=== PATIENT | male | born 1960 | race Caucasian/White ===

== ENCOUNTER 2018-06-17 16:35 | Observation (INO) | payer OTHER ==
[2018-06-17 16:39] VITALS: BMI 24.7
--- NOTE | 2018-06-17 16:39 | PDOC ---
History of Present Illness - General Chief Complaint: Syncope/Near Syncope Stated Complaint: SYNCOPE Time Seen by Provider: 06/17/18 16:38 - History of Present Illness Initial Comments: 06/17/18 16:52 Mr. Flaherty is a 57 yo male w/ pmh of HTN and HLD who presents for evaluation of sudden onset weakness earlier today. Patient reports he has been feeling his normal self until shortly before presentation when he became generally weak throughout his body and slumped down. Denies hitting his head or any LOC however. Of note, Mr. Flaherty reports he checked his BP this morning and found it to be 230 systolic. Reports a minor generalized headache at this time. He denies any other complaints. The patient denies chest pain, shortness of breath, and dizziness. Denies fever , chills, nausea, vomit, diarrhea and constipation. Denies dysuria, frequency, urgency and hematuria. Past History - Past Medical History Allergies/Adverse Reactions: Allergies Allergy/AdvReac Type Severity Reaction Status Date / Time No Known Allergies Allergy Verified 06/17/18 16:38 Home Medications: Ambulatory Orders Amlodipine Besylate [Norvasc -] 10 mg PO DAILY 06/17/18 Atorvastatin Ca [Lipitor] 80 mg PO HS 06/17/18 Carvedilol [Coreg -] 25 mg PO BID 06/17/18 Clonidine HCl 0.3 mg PO BID 06/17/18 Furosemide [Lasix -] 20 mg PO DAILY 06/17/18 Review of Systems - Review of Systems Comments:: 06/17/18 16:53 GENERAL/CONSTITUTIONAL: +Weakness as described. No fever or chills. HEAD, EYES, EARS, NOSE AND THROAT: No change in vision. No ear pain or discharge. No sore throat. CARDIOVASCULAR: No chest pain or shortness of breath RESPIRATORY: No cough, wheezing, or hemoptysis. GASTROINTESTINAL: No nausea, vomiting, diarrhea or constipation. GENITOURINARY: No dysuria, frequency, or change in urination. MUSCULOSKELETAL: No joint or muscle swelling or pain. No neck or back pain. SKIN: No rash NEUROLOGIC: +Headache as described. No vertigo or change in strength/sensation. ENDOCRINE: No increased thirst. No abnormal weight change HEMATOLOGIC/LYMPHATIC: No anemia, easy bleeding, or history of blood clots. ALLERGIC/IMMUNOLOGIC: No hives or skin allergy. 06/17/18 16:56 *Physical Exam - Physical Exam Comments: 06/17/18 16:53 GENERAL: Awake, alert, and fully oriented, in no acute distress HEAD: No signs of trauma, normocephalic, atraumatic EYES: PERRLA, EOMI, sclera anicteric, conjunctiva clear ENT: Auricles normal inspection, hearing grossly normal, nares patent, oropharynx clear without exudates. Moist mucosa NECK: Normal ROM, supple, no lymphadenopathy, JVD, or masses LUNGS: No distress, speaks full sentences, clear to auscultation bilaterally HEART: Regular rate and rhythm, normal S1 and S2, no murmurs, rubs or gallops, peripheral pulses normal and equal bilaterally. ABDOMEN: Soft, nontender, normoactive bowel sounds. No guarding, no rebound. No masses EXTREMITIES: Normal inspection, Normal range of motion, no edema. No clubbing or cyanosis. NEUROLOGICAL: Cranial nerves II through XII grossly intact. Normal speech, normal gait, no focal sensorimotor deficits SKIN: Warm, Dry, normal turgor, no rashes or lesions noted. Heart Score/ECG Review - History History: Highly suspicious - Electrocardiogram EKG: Non specific repolarization disturbance - Age Age: 45-65 - Risk Factors Risk Factors Heart Score: Yes Hx Hypercholesterolemia, Yes Hx Hypertension Based on the list above the patient has:: 1-2 risk factors - Troponin Troponin: </= normal limit - Score Heart Score - Total: 5 ED Treatment Course - LABORATORY CBC & Chemistry Diagram: 06/17/18 16:55 06/17/18 16:55 Medical Decision Making - Medical Decision Making 06/17/18 17:46 Mr. Flaherty is a 57 yo male w/ pmh as described who presents for evaluation of sudden onset weakness earlier today. Upon repeat interview patient reports this has happened in the past however he has never been evaluated for it. Patient undergoing evaluation for cardiac causes. Left ventricular hypertrophy noted on EKG. Prolonged QT also noted: QT/QTc 472/509. 06/17/18 18:00 Patient CXR negative. Labs significant for elevated creatinine and decreased GFR as below. Head CT negative for acute process. Significant for small vessel periventricular ischemic changes. Admitting patient for tele-observation for further evaluation of HEART score 5 and concerning near-syncopal episode. Laboratory Results - last 24 hr 06/17/18 06/17/18 16:55 16:55 WBC 8.8 RBC 4.76 Hgb 12.4 Hct 37.1 MCV 78.0 L MCH 26.0 MCHC 33.3 RDW 17.7 H Plt Count 222 MPV 8.5 Absolute Neuts (auto) 6.6 Neutrophils % 74.7 Lymphocytes % 12.1 Monocytes % 10.3 H Eosinophils % 2.5 Basophils % 0.4 Nucleated RBC % 0 Sodium 140 Potassium 4.0 Chloride 102 Carbon Dioxide 29 Anion Gap 9 BUN 41 H Creatinine 2.5 H Creat Clearance w eGFR 26.75 Random Glucose 110 H Calcium 7.9 L Total Bilirubin 0.7 AST 19 ALT 31 Alkaline Phosphatase 118 H Creatine Kinase 118 Troponin I 0.03 Total Protein 6.8 Albumin 3.5 *DC/Admit/Observation/Transfer Diagnosis at time of Disposition: Near syncope CKD (chronic kidney disease) Qualifiers: Chronic kidney disease stage: unspecified stage Qualified Code(s): N18.9 - Chronic kidney disease, unspecified - Discharge Dispostion Decision to Admit order: Yes - Referrals - Patient Instructions - Post Discharge Activity
--- NOTE | 2018-06-17 16:50 | PDOC ---
Attending Attestation - HPI HPI: 06/17/18 16:52 The patient is a 57 year old male, with a significant past medical history of HLD, HTN, who presents to the emergency department with sudden onset of weakness resulting in falling backward while pushing a cart at work today. He states he feels he felt weak secondary to blood pressure. He denies LOC, but reportedly hit the back of his head on the ground. He denies any other symptoms. The patient denies chest pain, shortness of breath, headache and dizziness. The patient denies fever, chills, nausea, vomit, diarrhea and constipation. The patient denies dysuria, frequency, urgency and hematuria. Allergies: NKDA Documentation prepared by Jasmina Lewis, acting as director medical for Radha Mcarthur MD <Jasmina Lewis - Last Filed: 06/17/18 16:52> - Resident Resident Name: Cecilio Escobar - ED Attending Attestation I have performed the following: I have examined & evaluated the patient, The case was reviewed & discussed with the resident, I agree w/resident's findings & plan, Exceptions are as noted - Physicial Exam PE: 06/17/18 17:11 GENERAL: The patient is in no acute distress, resting comfortably. HEAD: Normal EYES: PERRLA, EOMI, sclera anicteric, conjunctiva clear. ENT: Ears normal, nares patent, oropharynx clear without exudates. Moist mucous membranes. NECK: Normal range of motion, supple without JVD LUNGS: Breath sounds equal, clear to auscultation bilaterally. No wheezes, and no crackles. HEART:Regular rate and rhythm, normal S1 and S2 without murmur, rub or gallop. ABDOMEN: Soft, nontender, normoactive bowel sounds. EXTREMITIES: Normal range of motion, no edema. NEUROLOGICAL: Cranial nerves II through XII grossly intact. Normal speech. No focal neurological deficits. MUSCULOSKELETAL: Back non-tender to palpation, no CVA tenderness SKIN: Warm, Dry, normal turgor, no rashes or lesions noted. - Medical Decision Making 06/17/18 16:49 57 yo M h/o HTn on Amlodipine, Coreg, Clonidine, Furosemide. Pt missed his blood pressure meds yesterday evening, took meds this morning Went to work with SBP 200s this afternoon while pushing his cart, he became weak and laid down He associated these symptoms with his elevated blood pressure His co worker saw him on the ground and called EMS No chest pain, no shortness of breath, no palpitations He has a mild headache which is present now Pt denies LOC On examination RRR CTA Neurologically intact - No facial asymmetry No visual disturbance No speech disturbance Moves all extremities with no difficulty or weakness EKG - NSR rate of 70 bpm, axis nml, intervals abn - pr:128ms, QRS:92ms, QTc: 509ms, LVH, t wave inversions I, II, aVL, v4-v6, no st elevation or depression 06/17/18 17:12 I have rechecked this gentleman's Blood pressure Right - 122/84 HR: 68 Left - 131/88 HR:69 Pt presents with pre syncope/syncope no prodrome Will do: Labs CXR Tylenol for headache Consider CT head Obs 06/17/18 17:58 Laboratory Tests 06/17/18 06/17/18 16:55 16:55 WBC 8.8 Hgb 12.4 Hct 37.1 Plt Count 222 BUN 41 H Creatinine 2.5 H Troponin I 0.03 06/17/18 22:32 Clinical impression: pre-syncope/syncope, initial presentation <Radha Mcarthur - Last Filed: 06/17/18 22:32>
[2018-06-17] MEDS ORDERED: ACETAMINOPHEN 1000 MG/100 ML VIAL (NON FORMULARY) IVPB ONE (16:51)
[2018-06-17] MEDS ORDERED: ACETAMINOPHEN INJECTION 100 ML IVPB ONE (16:56)
[2018-06-17 17:15] LABS: BASO % 0.4 % (0-2.0); EOS % 2.5 % (0-4.5); HEMATOCRIT 37.1 % (35.4-49); HEMOGLOBIN 12.4 GM/dL (11.7-16.9); LYMPH % 12.1 % (8-40); MCHC 33.3 g/dl (32.0-35.9); MEAN PLT VOLUME 8.5 fl (7.5-11.1); MONO % 10.3 % (3.8-10.2); NEUT % 74.7 % (42.8-82.8); PLATELET COUNT 222 K/MM3 (134-434); RBC 4.76 M/mm3 (4.00-5.60); RDW 17.7 % (11.9-15.9); WHITE BLOOD COUNT 8.8 K/mm3 (4.0-10.0)
[2018-06-17 17:54] LABS: ALBUMIN 3.5 g/dl (3.4-5.0); ALK PHOS 118 U/L (45-117); ANION GAP 9 MMOL/L (8-16); BILIRUBIN,TOTAL 0.7 mg/dL (0.2-1); BLOOD UREA NITROGEN 41 mg/dL (7-18); CALCIUM 7.9 mg/dL (8.5-10.1); CHLORIDE 102 mmol/L (98-107); CO2 29 mmol/L (21-32); CREATININE 2.5 mg/dL (0.55-1.3); GLUCOSE,RANDOM 110 mg/dL (74-106); SGOT/AST 19 U/L (15-37); SGPT/ALT 31 U/L (13-61); SODIUM 140 mmol/L (136-145); TOT PROT 6.8 g/dl (6.4-8.2)
[2018-06-17] MEDS ORDERED: SODIUM CHLORIDE 1,000 ML IV STA (18:34)
--- NOTE | 2018-06-17 19:44 | HP ---
CHIEF COMPLAINT: dizziness PCP: Nayely Cordoba HISTORY OF PRESENT ILLNESS: Patient is a 57 yo M with a PMHx of HTN, HLD, PR (s/ p 2 stents 10 years ago), presented because of dizziness and weakness that occurred while working today. 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 He did not lose consciousness. He said this happened to him multiple times in the last few months. He denies chest pain and palpitations. He says he does not work in the sun and drinks a lot of water. He said he was at his doctors appointment today when she noticed his BP to be in the 200's. 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 He says he may have felt dizzy because of his blood pressure. He says he saw a immigration law specialist last year but does not remember his name. He denies kidney issues but says he was referred to a nuclear medicine medical director last year and he prescribed him a medication. He does not recall the name of the medication. Patient currently denies headaches, sob, dizziness, chest pain, palpitations, nausea, vomiting, changes in his urine, weight changes. ER course was notable for: (1) Cr 2.5, BUN 41, GFR 26 (2) Left ventricular hypertrophy noted on EKG. Prolonged QT also noted: QT/QTc 472/509. Recent Travel: [facility] last year PAST MEDICAL HISTORY: per HPI PAST SURGICAL HISTORY: denies Social History: Smoking: denies Alcohol:denies Drugs: denies Family History: Allergies No Known Allergies Allergy (Verified 06/17/18 16:38) HOME MEDICATIONS: Home Medications Medication Instructions Recorded Amlodipine Besylate [Norvasc -] 10 mg PO DAILY 06/17/18 Atorvastatin Ca [Lipitor] 80 mg PO HS 06/17/18 Carvedilol [Coreg -] 25 mg PO BID 06/17/18 Clonidine HCl 0.3 mg PO BID 06/17/18 Furosemide [Lasix -] 20 mg PO DAILY 06/17/18 REVIEW OF SYSTEMS CONSTITUTIONAL: Absent: fever, chills, diaphoresis, generalized weakness, malaise, loss of appetite, weight change HEENT: Absent: rhinorrhea, nasal congestion, throat pain, throat swelling, difficulty swallowing, mouth swelling, ear pain, eye pain, visual changes CARDIOVASCULAR: Absent: chest pain, syncope, palpitations, irregular heart rate, lightheadedness , peripheral edema RESPIRATORY: Absent: cough, shortness of breath, dyspnea with exertion, orthopnea, wheezing, stridor, hemoptysis GASTROINTESTINAL: Absent: abdominal pain, abdominal distension, nausea, vomiting, diarrhea, constipation, melena, hematochezia GENITOURINARY: Absent: dysuria, frequency, urgency, hesitancy, hematuria, flank pain, genital pain MUSCULOSKELETAL: Absent: myalgia, arthralgia, joint swelling, back pain, neck pain SKIN: Absent: rash, itching, pallor HEMATOLOGIC/IMMUNOLOGIC: Absent: easy bleeding, easy bruising, lymphadenopathy, frequent infections ENDOCRINE: Absent: unexplained weight gain, unexplained weight loss, heat intolerance, cold intolerance NEUROLOGIC: Absent: headache, focal weakness or paresthesias, dizziness, unsteady gait, seizure, mental status changes, bladder or bowel incontinence PSYCHIATRIC: Absent: anxiety, depression, suicidal or homicidal ideation, hallucinations. PHYSICAL EXAMINATION Vital Signs - 24 hr 06/17/18 06/17/18 06/17/18 16:38 16:52 19:00 Temperature 97.2 F L Pulse Rate 68 Pulse Rate [ 69 Sitting] Pulse Rate [ 68 Standing] Pulse Rate [ 68 Supine] Respiratory 18 Rate Blood Pressure 142/88 Blood Pressure 127/65 [Sitting] Blood Pressure 122/79 [Standing] Blood Pressure 128/84 [Supine] O2 Sat by Pulse 100 Oximetry (%) GENERAL: Awake, alert, and fully oriented, in no acute distress. HEAD: Normal with no signs of trauma. EYES: Pupils equal, round and reactive to light, extraocular movements intact, sclera anicteric, conjunctiva clear. EARS, NOSE, THROAT: oropharynx clear without exudates. Moist mucous membranes. NECK:supple without lymphadenopathy, JVD, or masses. LUNGS: Breath sounds equal, clear to auscultation bilaterally. No wheezes, and no crackles. No accessory muscle use. HEART: Regular rate and rhythm, normal S1 and S2 without murmur, rub or gallop. ABDOMEN: Soft, nontender, not distended, normoactive bowel sounds, no guarding, no rebound, no masses. MUSCULOSKELETAL: Normal range of motion at all joints. No bony deformities or tenderness. No CVA tenderness. LOWER EXTREMITIES: 2+ pulses, warm, well-perfused. No calf tenderness. No peripheral edema. NEUROLOGICAL: Cranial nerves II-XII intact. Normal speech. Normal gait. PSYCHIATRIC: Cooperative. Good eye contact. Appropriate mood and affect. Laboratory Results - last 24 hr 06/17/18 06/17/18 16:55 16:55 WBC 8.8 RBC 4.76 Hgb 12.4 Hct 37.1 MCV 78.0 L MCH 26.0 MCHC 33.3 RDW 17.7 H Plt Count 222 MPV 8.5 Absolute Neuts (auto) 6.6 Neutrophils % 74.7 Lymphocytes % 12.1 Monocytes % 10.3 H Eosinophils % 2.5 Basophils % 0.4 Nucleated RBC % 0 Sodium 140 Potassium 4.0 Chloride 102 Carbon Dioxide 29 Anion Gap 9 BUN 41 H Creatinine 2.5 H Creat Clearance w eGFR 26.75 Random Glucose 110 H Calcium 7.9 L Total Bilirubin 0.7 AST 19 ALT 31 Alkaline Phosphatase 118 H Creatine Kinase 118 Troponin I 0.03 Total Protein 6.8 Albumin 3.5 ASSESSMENT/PLAN: 57 yo M with a PMHx of HTN, HLD, PR (s/p 2 stents 10 years ago), presented because of dizziness and weakness #Presyncope -likely secondary to dehydration -hx of PR, CAD -echo -carotid doppler -lipid panel -consult Cardio -repeat EKG in AM #SACHIN on CKD? -Renal U/S -urine studies -hold lasix -investigate renal hx -renal consulted -IV fluids #HTN/CAD -cont home meds #FEN -IV fluids NS @75 -monitor -Renal diet #DVT -lovenox 40 Dispo: obs/tele Visit type - Emergency Visit Emergency Visit: Yes ED Registration Date: 06/17/18 Care time: The patient presented to the Emergency Department on the above date and was hospitalized for further evaluation of their emergent condition. - New Patient This patient is new to me today: Yes Date on this admission: 06/17/18 - Critical Care Critical Care patient: No
[2018-06-17] MEDS ORDERED: diphenhydrAMINE HCL 25 MG CAPSULE (FP) PO ONE ×2 (19:45→19:55)
[2018-06-17] MEDS: SODIUM CHLORIDE 1,000 ML IV SCH (20:10)
[2018-06-17] MEDS ORDERED: CARVEDILOL 12.5 MG TABLET (FP) ONE (21:49)
[2018-06-17] MEDS ORDERED: cloNIDine HCL 0.1 MG TABLET ONE (21:49)
[2018-06-17] MEDS ORDERED: ATORVASTATIN CA 40 MG TABLET (FP) ONE (21:50)
[2018-06-17] MEDS: cloNIDine HCL 0.1 MG TABLET PO SCH (21:55)
[2018-06-17] MEDS: ATORVASTATIN CA 80 MG TABLET (FP) PO SCH (21:55)
[2018-06-17] MEDS: CARVEDILOL 25 MG TABLET (FP) PO SCH (21:55)
--- NOTE | 2018-06-17 22:43 | PN ---
Teaching Attending Note Name of Resident: Tequila Mims ATTENDING PHYSICIAN STATEMENT I saw and evaluated the patient. I reviewed the resident's note and discussed the case with the resident. I agree with the resident's findings and plan as documented. SUBJECTIVE: OBJECTIVE: aaox3 s1 and s2 rrr lungs CTA good air entry no edema soft non-tender abdomen. ASSESSMENT AND PLAN: this is a 57 yo M with a PMHx of HTN, HLD, GA (s/p 2 stents 10 years ago), presented because of dizziness and weakness while he was pushing the cart, patient nearly fainted - according to him this was the 2nd episode that he almost fainted - so he decided to come to the ER for further evaluation. #Presyncope - 2nd episode - admit the patient to tele floor - obtain an echo -carotid Doppler -lipid panel -consult Cardiology -repeat EKG in AM #SACHIN on CKD? -Renal U/S -urine studies -hold furosemide -investigate renal hx -renal consulted -IV fluids #HTN/CAD -cont home meds Microcytic anemia consider GI evaluation for an outpatient endoscopy
[2018-06-18 06:21] LABS: BASO % 0.7 % (0-2.0); EOS % 4.1 % (0-4.5); HEMATOCRIT 32.7 % (35.4-49); HEMOGLOBIN 10.9 GM/dL (11.7-16.9); LYMPH % 24.2 % (8-40); MCH 25.9 pg (25.7-33.7); MCHC 33.5 g/dl (32.0-35.9); MEAN CELL VOLUME 77.4 fl (80-96); MEAN PLT VOLUME 8.6 fl (7.5-11.1); MONO % 13.1 % (3.8-10.2); NEUT % 57.9 % (42.8-82.8); PLATELET COUNT 205 K/MM3 (134-434); RBC 4.23 M/mm3 (4.00-5.60); RDW 18.2 % (11.9-15.9); WHITE BLOOD COUNT 6.1 K/mm3 (4.0-10.0)
[2018-06-18 06:42] LABS: INR 1.13 (0.83-1.09); PROTHROMBIN TIME (PATIENT) 13.3 SEC (9.7-13.0)
[2018-06-18 06:51] LABS: ALBUMIN 2.9 g/dl (3.4-5.0); ALK PHOS 93 U/L (45-117); ANION GAP 8 MMOL/L (8-16); BILIRUBIN,TOTAL 0.8 mg/dL (0.2-1); BLOOD UREA NITROGEN 39 mg/dL (7-18); CALCIUM 7.8 mg/dL (8.5-10.1); CHLORIDE 106 mmol/L (98-107); CO2 28 mmol/L (21-32); CREATININE 2.2 mg/dL (0.55-1.3); GLUCOSE,RANDOM 72 mg/dL (74-106); HDL CHOLESTEROL 39 mg/dL (40-60); SGOT/AST 16 U/L (15-37); SGPT/ALT 24 U/L (13-61); SODIUM 142 mmol/L (136-145); TOT PROT 5.7 g/dl (6.4-8.2); TRIGLYCERIDES 131 mg/dL (0-150)
[2018-06-18] MEDS: cloNIDine HCL 0.1 MG TABLET PO SCH ×2 (09:15→22:05)
[2018-06-18] MEDS: amLODIPine BESYLATE 10 MG TABLET (FP) PO SCH (09:16)
[2018-06-18] MEDS: CARVEDILOL 25 MG TABLET (FP) PO SCH ×2 (09:16→22:05)
[2018-06-18] MEDS ORDERED: ENOXAPARIN NA (PORCINE) 40 MG/0.4 ML DISP.SYRIN SQ SCH (10:00)
--- NOTE | 2018-06-18 10:33 | PN ---
Progress Note (short form) - Note Progress Note: SUBJECTIVE: Feels well. No further episodes of pre-/syncope. No chest pain/ palpitations. Rash on bilateral arms OBJECTIVE: Afebrile/Hemodynamically Stable. Last Vital Signs Temp Pulse Resp BP Pulse Ox 97.8 F 64 16 143/82 96 06/18/18 06:00 06/18/18 06:00 06/18/18 06:00 06/18/18 06:00 06/18/18 00:45 HEENT - Atraumatic, Normocephalic. Heart -S1, S2, RRR Lungs - clear to auscultation, no crackles/wheeze Abdomen - Soft, non-tender. Bowel Sounds normal. Extremities - no edema. No calf tenderness. Neuro - AAO x 3. Tone/Power normal all 4 extremities Skin - bite allen with some tracking UEs. Laboratory Results - last 24 hr 06/17/18 06/17/18 06/18/18 16:55 16:55 00:15 WBC 8.8 RBC 4.76 Hgb 12.4 Hct 37.1 MCV 78.0 L MCH 26.0 MCHC 33.3 RDW 17.7 H Plt Count 222 MPV 8.5 Absolute Neuts (auto) 6.6 Neutrophils % 74.7 Lymphocytes % 12.1 Monocytes % 10.3 H Eosinophils % 2.5 Basophils % 0.4 Nucleated RBC % 0 PT with INR INR Sodium 140 Potassium 4.0 Chloride 102 Carbon Dioxide 29 Anion Gap 9 BUN 41 H Creatinine 2.5 H Creat Clearance w eGFR 26.75 Random Glucose 110 H Hemoglobin A1c % Calcium 7.9 L Total Bilirubin 0.7 AST 19 ALT 31 Alkaline Phosphatase 118 H Creatine Kinase 118 Troponin I 0.03 0.05 Total Protein 6.8 Albumin 3.5 Triglycerides Cholesterol 191 Total LDL Cholesterol HDL Cholesterol Blood Type Antibody Screen 06/18/18 06/18/18 06/18/18 05:25 05:25 05:25 WBC 6.1 RBC 4.23 Hgb 10.9 L Hct 32.7 L MCV 77.4 L MCH 25.9 MCHC 33.5 RDW 18.2 H Plt Count 205 MPV 8.6 Absolute Neuts (auto) 3.5 Neutrophils % 57.9 D Lymphocytes % 24.2 D Monocytes % 13.1 H Eosinophils % 4.1 Basophils % 0.7 Nucleated RBC % 0 PT with INR 13.30 H INR 1.13 H Sodium 142 Potassium 4.0 Chloride 106 Carbon Dioxide 28 Anion Gap 8 BUN 39 H Creatinine 2.2 H Creat Clearance w eGFR 31.01 Random Glucose 72 L Hemoglobin A1c % Calcium 7.8 L Total Bilirubin 0.8 AST 16 ALT 24 Alkaline Phosphatase 93 Creatine Kinase Troponin I Total Protein 5.7 L Albumin 2.9 L Triglycerides 131 Cholesterol Total LDL Cholesterol 131 H HDL Cholesterol 39 L Blood Type Antibody Screen 06/18/18 06/18/18 06/18/18 05:25 05:25 05:25 WBC RBC Hgb Hct MCV MCH MCHC RDW Plt Count MPV Absolute Neuts (auto) Neutrophils % Lymphocytes % Monocytes % Eosinophils % Basophils % Nucleated RBC % PT with INR INR Sodium Potassium Chloride Carbon Dioxide Anion Gap BUN Creatinine Creat Clearance w eGFR Random Glucose Hemoglobin A1c % 5.7 Calcium Total Bilirubin AST ALT Alkaline Phosphatase Creatine Kinase Troponin I 0.06 H Total Protein Albumin Triglycerides Cholesterol Total LDL Cholesterol HDL Cholesterol Blood Type O POSITIVE Antibody Screen Negative Current Medications Generic Name Dose Route Start Last Admin Trade Name Isaura PRN Reason Stop Dose Admin Amlodipine Besylate 10 mg 06/18/18 10:00 06/18/18 09:16 Norvasc - PO 10 mg DAILY MICK Administration Atorvastatin Calcium 80 mg 06/17/18 22:00 06/17/18 21:55 Lipitor - PO 80 mg HS MICK Administration Carvedilol 25 mg 06/17/18 22:00 06/18/18 09:16 Coreg - PO 25 mg BID MICK Administration Clonidine 0.3 mg 06/17/18 22:00 06/18/18 09:15 Catapres - PO 0.3 mg BID MICK Administration Enoxaparin Sodium 40 mg 06/18/18 10:00 06/18/18 09:16 Lovenox - SQ 40 mg DAILY MICK Administration Sodium Chloride 1,000 mls @ 75 mls/hr 06/17/18 19:00 06/17/18 20:10 Normal Saline - IV 75 mls/hr ASDIR MICK Administration Home Medications Medication Instructions Recorded Amlodipine Besylate [Norvasc -] 10 mg PO DAILY 06/17/18 Atorvastatin Ca [Lipitor] 80 mg PO HS 06/17/18 Carvedilol [Coreg -] 25 mg PO BID 06/17/18 Clonidine HCl 0.3 mg PO BID 06/17/18 Furosemide [Lasix -] 20 mg PO DAILY 06/17/18 ASSESSMENT/PLAN 57 year old Male with HTN, HLD, CAD s/p ID (s/p Stent x 2), possible CKD, admitted with lightheaded episode with weakness necessitating him to lay on the floor - denies LOC/HI. No preceding chest pain/palpitations. 1. Presyncopal Episode Etiology unclear Carotid Duplex - 79% stenosis R ICA, no Hx CVA Echo pending CT Brain neg for acute intracranial findings. No overnight tele events. Cardiology consulted. Will also consult vascular Surgery re: Carotid Stenosis 2. Elevated Troponin/ Background Hx CAD s/p ID s/p Stent x 2 (>10 years ago) Likely secondary to demand - TropI max 0.06, repeat scheduled Denies Chest Pain ECG - SR, LVH, QTc 505. Does not appear to be on ASA. Continue BB, Statin. Cardiology consulted. 3. Possible SACHIN on likely CKD Creat 2.5 on presentation, now down to 2.2 Baseline Creat unknown Patient apparently on Lasix at home for unclear reasons. Will attempt to contact patient's PCP office for further information. Rwnal US - medical renal disease, no hydronephrosis. Continue IV fluids for now. Lasix held. Nephrology consulted. 4. HTN - Continue Norvasc, Carvedilol, Clonidine 5. HLD - Continue Atorvastatin 6. Rash, possible bed bugs vs scabies. Isolation. Permethrin. DVT Px - Change Lovenox to Heparin Visit type - Emergency Visit Emergency Visit: Yes ED Registration Date: 06/17/18 Care time: The patient presented to the Emergency Department on the above date and was hospitalized for further evaluation of their emergent condition. - New Patient This patient is new to me today: Yes Date on this admission: 06/18/18 - Critical Care Critical Care patient: No - Discharge Referral Referred to [facility] Med P.C.: No
[2018-06-18] MEDS ORDERED: PERMETHRIN 5% TOPICAL CREAM 60 GM TUBE TP ONE (11:00)
[2018-06-18] MEDS: SODIUM CHLORIDE 1,000 ML IV SCH (12:00)
[2018-06-18] MEDS: HEPARIN NA (PORCINE) 5,000 UNITS/ML 1ML VIAL SQ SCH ×2 (13:46→22:05)
--- NOTE | 2018-06-18 15:34 | CON.CARD ---
Consult Consult Specialty:: cardiology Reason for Consultation:: near-syncope - History of Present Illness Chief Complaint: Pt A&Ox3; no dizziness, palpitations, chest pain History of Present Illness: Mr. Flaherty is a 57 yo male w/ pmh of HTN and HLD who presents for evaluation of sudden onset weakness earlier today. Patient reports he has been feeling his normal self until shortly before presentation when he became generally weak throughout his body and slumped down. Denies hitting his head or any LOC however. Of note, Mr. Flaherty reports he checked his BP this morning and found it to be 230 systolic. Reports a minor generalized headache at this time. He denies any other complaints. 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 - History Source History Provided By: Patient, Medical Record Limitations to Obtaining History: Poor Historian - Past Medical History Cardio/Vascular: Yes: CAD. No: [place] Pulmonary: No: Asthma Psych: No: Anxiety, Depression, Panic - Past Surgical History Past Surgical History: Yes: Stent (2 coronary stents in ?2011 (placed same day ; in [facility])) - Alcohol/Substance Use Hx Alcohol Use: No - Smoking History Smoking history: Never smoked Have you smoked in the past 12 months: No - Social History Place of : Other ([facility]) Home Medications - Allergies Allergies/Adverse Reactions: Allergies Allergy/AdvReac Type Severity Reaction Status Date / Time No Known Allergies Allergy Verified 06/17/18 16:38 - Home Medications Home Medications: Ambulatory Orders Amlodipine Besylate [Norvasc -] 10 mg PO DAILY 06/17/18 Atorvastatin Ca [Lipitor] 80 mg PO HS 06/17/18 Carvedilol [Coreg -] 25 mg PO BID 06/17/18 Clonidine HCl 0.3 mg PO BID 06/17/18 Furosemide [Lasix -] 20 mg PO DAILY 06/17/18 Ranitidine [Zantac -] 150 mg PO BID 06/20/18 Family Disease History - Family Disease History Family Disease History: Heart Disease: Mother ( near age 80 of "heart") Review of Systems - Review of Systems Constitutional: reports: Weakness Eyes: reports: No Symptoms HENT: reports: No Symptoms Neck: reports: No Symptoms Cardiovascular: reports: Chest Pain Respiratory: reports: No Symptoms Gastrointestinal: reports: No Symptoms Genitourinary: reports: No Symptoms Breasts: reports: No Symptoms Reported Musculoskeletal: reports: No Symptoms Integumentary: reports: No Symptoms Neurological: reports: No Symptoms Endocrine: reports: No Symptoms Hematology/Lymphatic: reports: No Symptoms Psychiatric: reports: Anxiety - Risk Factors Known Risk Factors: Yes: Age, Gender, Hypercholesterolemia, Hypertension, Physical Inactivity, Other (CAD-->coronary stents in 2011) Vital Signs: Vital Signs Temperature 97.9 F 06/18/18 14:48 Pulse Rate 68 06/18/18 14:48 Respiratory Rate 16 06/18/18 14:48 Blood Pressure 138/76 06/18/18 14:48 O2 Sat by Pulse Oximetry (%) 96 06/18/18 00:45 Constitutional: Yes: Anxious Eyes: Yes: WNL HENT: Yes: WNL Neck: Yes: WNL Respiratory: Yes: WNL Gastrointestinal: Yes: WNL Renal/: No: Anuria Cardiovascular: Yes: WNL JVD: No Carotid Bruit: No PMI: Non-Displaced Heart Sounds: Yes: S1, S2 Murmur: Yes: Systolic Murmur, Grade 1 Musculoskeletal: Yes: Muscle Weakness Extremities: Yes: WNL Edema: No Peripheral Pulses WNL: Yes Integumentary: Yes: Rash Neurological: Yes: WNL Psychiatric: Yes: Other - Other Data Labs, Other Data: CBC, BMP 06/18/18 05:25 06/18/18 05:25 INR, PTT INR 1.13 (0.83-1.09) H 06/18/18 05:25 Troponin, BNP 06/17/18 06/18/18 06/18/18 16:55 00:15 05:25 Troponin I 0.03 0.05 0.06 H 06/18/18 11:30 Troponin I 0.05 Troponin, BNP 06/17/18 06/18/18 06/18/18 16:55 00:15 05:25 Troponin I 0.03 0.05 0.06 H 06/18/18 11:30 Troponin I 0.05 Abnormal Lab Results 06/20/18 06/20/18 06/20/18 05:30 05:30 12:20 Hgb 11.0 L Hct 33.1 L MCV 77.7 L 78.0 L RDW 18.0 H 18.3 H BUN 47 H Creatinine 2.4 H Calcium 7.5 L Alkaline Phosphatase 118 H Total Protein 6.2 L Albumin 3.1 L Echo: Image Reviewed Imaging - Results Chest X-ray: Image Reviewed EKG: Image Reviewed Problem List - Problems (1) HTN (hypertension) Code(s): I10 - ESSENTIAL (PRIMARY) HYPERTENSION (2) Near syncope Assessment/Plan: orthotstatic vital signs . Hydration; f/u Is and Os, dialy weight, BUn/Dr, eelectrolytes. Carotid artery stenosis: f/u with vascualr surgeon. F/u CAD w/u. ECHO for LVEF, wall motion, r/o thrombus, wall thickness., valve status. Code(s): R55 - SYNCOPE AND COLLAPSE (3) Hyperlipidemia Assessment/Plan: statin started. Code(s): E78.5 - HYPERLIPIDEMIA, UNSPECIFIED (4) CAD (coronary artery disease) Assessment/Plan: Pt with hx 2 coronary stents placed ?2011 in [facility] [place]. Denies hx [place]. Reports haveing stress MIBI at [facility] ?2017. Start statin (elevated LDL and triglycerides). BP control. Now with mild TNI elevation. If stress MIBI was not recently done, will repeat. Code(s): I25.10 - ATHSCL HEART DISEASE OF [place] CORONARY ARTERY W/O ANG PCTRS (5) Renal dysfunction Assessment/Plan: F/u with director skills. Code(s): N28.9 - DISORDER OF KIDNEY AND URETER, UNSPECIFIED (6) Carotid artery stenosis Assessment/Plan: Aggressive control of BP, lipids. May require CTA or MRA. F/u with vascular surgeon. Code(s): I65.29 - OCCLUSION AND STENOSIS OF UNSPECIFIED CAROTID ARTERY (7) NSVT (nonsustained ventricular tachycardia) Assessment/Plan: Ventricular triplets on telemtry. F/u electrolytes. ECHO for LVEF, wall motion, valve status. F/u workup for progressive CAD and carotid artery disease. Code(s): I47.2 - VENTRICULAR TACHYCARDIA (8) LVH (left ventricular hypertrophy) Assessment/Plan: EKG : NSR; marked LVH with repolarization abnormalities.likely 2ndary to HTN. F?u TNI. F/u ECHO for LVEF, wall thickness and motion, valve status. +Carotid artery stenosis: f/u with vascular surgeon. Coronary artery evaluation : stress MIBI, if not done recently. BP conrol. Code(s): I51.7 - CARDIOMEGALY (9) Troponin level elevated Code(s): R74.8 - ABNORMAL LEVELS OF OTHER SERUM ENZYMES
[2018-06-18 17:33] LABS: COCAINE, UR NEGATIVE ng/ml (CUTOFF=300); METHADONE, UR NEGATIVE ng/ml (CUTOFF=300); OPIATES, URI NEGATIVE ng/ml (CUTOFF=300); PHENCYCLIDINE,URINE NEGATIVE ng/ml (CUTOFF=25); URINE BARBITURATES NEGATIVE ng/ml (CUTOFF=200); URINE BENZODIAZEPINES NEGATIVE ng/ml (CUTOFF=200)
[2018-06-18 17:34] LABS: URINE AMPHETAMINES NEGATIVE ng/ml (CUTOFF=500)
--- NOTE | 2018-06-18 17:54 | CONSULT ---
Consult Consult Specialty:: Nephrology Reason for Consultation:: CKD - History of Present Illness Chief Complaint: weakness History of Present Illness: Pt is a 57 year old male with pmhx of CKD, HTN, and HLD who presents to the ER with sudden weakness and pre-syncope. He was found to have elevated creatinine and I was called to evaluate him. He is a poor historian. He remembers being told that his renal function is not normal in the past. He denies dysuria or hematuria. He denies nsaid use. He is on 20mg of lasix daily however he does not know why. He denies shortness of breath. He says that he feels better today. - History Source History Provided By: Patient Limitations to Obtaining History: Poor Historian - Past Medical History Cardio/Vascular: Yes: CAD, HTN, Hyperlipdemia Renal/: Yes: Renal Inusuff - Past Surgical History Past Surgical History: Yes: Stent (2 coronary stents in ?2011 (placed same day ; in [facility])) - Alcohol/Substance Use Hx Alcohol Use: No - Smoking History Smoking history: Never smoked Have you smoked in the past 12 months: No Home Medications - Allergies Allergies/Adverse Reactions: Allergies Allergy/AdvReac Type Severity Reaction Status Date / Time No Known Allergies Allergy Verified 06/17/18 16:38 - Home Medications Home Medications: Ambulatory Orders Amlodipine Besylate [Norvasc -] 10 mg PO DAILY 06/17/18 Atorvastatin Ca [Lipitor] 80 mg PO HS 06/17/18 Carvedilol [Coreg -] 25 mg PO BID 06/17/18 Clonidine HCl 0.3 mg PO BID 06/17/18 Furosemide [Lasix -] 20 mg PO DAILY 06/17/18 Family Disease History - Family Disease History Family Disease History: Heart Disease: Mother ( near age 80 of "heart") Review of Systems - Review of Systems Constitutional: reports: Malaise. denies: Chills, Fever Eyes: reports: No Symptoms HENT: reports: No Symptoms Neck: reports: No Symptoms Cardiovascular: reports: No Symptoms Respiratory: reports: No Symptoms Gastrointestinal: reports: No Symptoms Genitourinary: reports: No Symptoms Musculoskeletal: reports: No Symptoms Integumentary: reports: No Symptoms Neurological: reports: No Symptoms Endocrine: reports: No Symptoms Hematology/Lymphatic: reports: No Symptoms Psychiatric: reports: No Symptoms Physical Exam Vital Signs: Vital Signs Temperature 97.9 F 06/18/18 14:48 Pulse Rate 61 06/18/18 17:34 Respiratory Rate 16 06/18/18 14:48 Blood Pressure 132/87 06/18/18 17:34 O2 Sat by Pulse Oximetry (%) 97 06/18/18 09:00 Constitutional: Yes: Calm Eyes: Yes: Conjunctiva Clear HENT: Yes: Atraumatic Neck: Yes: Supple Cardiovascular: Yes: S1, S2 Respiratory: Yes: CTA Bilaterally Gastrointestinal: Yes: Soft Renal/: Yes: WNL Musculoskeletal: Yes: WNL Edema: No Neurological: Yes: Oriented Psychiatric: Yes: Oriented Labs: CBC, BMP 06/18/18 05:25 06/18/18 05:25 Laboratory Tests 06/17/18 06/17/18 06/17/18 14:30 14:30 16:55 Hgb 12.4 Sodium Potassium Chloride Carbon Dioxide BUN Creatinine Urine Protein Pending Urine Blood Pending Ur Random Sodium 26 L 06/17/18 06/18/18 06/18/18 16:55 05:25 05:25 Hgb 10.9 L Sodium 140 142 Potassium 4.0 Chloride 106 Carbon Dioxide 29 BUN 41 H 39 H Creatinine 2.5 H 2.2 H Urine Protein Urine Blood Ur Random Sodium Imaging - Results Chest X-ray: Report Reviewed Ultrasound: Report Reviewed Problem List - Problems (1) CAD (coronary artery disease) Code(s): I25.10 - ATHSCL HEART DISEASE OF [place] CORONARY ARTERY W/O ANG PCTRS (2) CKD (chronic kidney disease) Code(s): N18.9 - CHRONIC KIDNEY DISEASE, UNSPECIFIED Qualifiers: Chronic kidney disease stage: unspecified stage Qualified Code(s): N18.9 - Chronic kidney disease, unspecified (3) Carotid artery stenosis Code(s): I65.29 - OCCLUSION AND STENOSIS OF UNSPECIFIED CAROTID ARTERY (4) HTN (hypertension) Code(s): I10 - ESSENTIAL (PRIMARY) HYPERTENSION (5) Hyperlipidemia Code(s): E78.5 - HYPERLIPIDEMIA, UNSPECIFIED (6) Near syncope Code(s): R55 - SYNCOPE AND COLLAPSE Assessment/Plan Current Medications Generic Name Dose Route Start Last Admin Trade Name Freq PRN Reason Stop Dose Admin Amlodipine Besylate 10 mg 06/18/18 10:00 06/18/18 09:16 Norvasc - PO 10 mg DAILY MICK Administration Atorvastatin Calcium 80 mg 06/17/18 22:00 06/17/18 21:55 Lipitor - PO 80 mg HS MICK Administration Carvedilol 25 mg 06/17/18 22:00 06/18/18 09:16 Coreg - PO 25 mg BID MICK Administration Clonidine 0.3 mg 06/17/18 22:00 06/18/18 09:15 Catapres - PO 0.3 mg BID MICK Administration Heparin Sodium (Porcine) 5,000 unit 06/18/18 14:00 06/18/18 13:46 Heparin - SQ 5,000 unit TID MICK Administration Sodium Chloride 1,000 mls @ 75 mls/hr 06/17/18 19:00 06/18/18 12:00 Normal Saline - IV 75 mls/hr ASDIR MICK Administration Impression 1. CKD with unclear baseline 2. pre-syncope 3. carotid stenosis 4. HTN 5. CAD 6. 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
[2018-06-18] MEDS ORDERED: SODIUM CHLORIDE 0.45% 1,000 ML IV SCH (18:00)
[2018-06-18 18:19] LABS: URINE APPEARANCE CLEAR; URINE BILIRUBIN NEGATIVE (<2.0 mg/dL); URINE COLOR YELLOW; URINE GLUCOSE (UA) NEGATIVE (NEGATIVE); URINE KETONE NEGATIVE (NEGATIVE); URINE LEUK ESTERASE NEGATIVE (NEGATIVE); URINE NITRITE NEGATIVE (NEGATIVE); URINE PROTEIN 2+ (NEGATIVE); URINE UROBILINOGEN NEGATIVE mg/dL (0.2-1.0)
[2018-06-18 18:31] LABS: EPI CELLS RARE /HPF (FEW); URINE HYALINE CAST 4 /lpf; URINE MUCUS RARE
--- NOTE | 2018-06-18 18:31 | EKG ---
Test Reason : Blood Pressure : / mmHG Vent. Rate : 064 BPM Atrial Rate : 064 BPM P-R Int : 134 ms QRS Dur : 102 ms QT Int : 490 ms P-R-T Axes : 061 -07 162 degrees QTc Int : 505 ms NORMAL SINUS RHYTHM POSSIBLE LEFT ATRIAL ENLARGEMENT LEFT VENTRICULAR HYPERTROPHY WITH REPOLARIZATION ABNORMALITY PROLONGED QT ABNORMAL ECG WHEN COMPARED WITH ECG OF 17-JUN-2018 16:44, NO SIGNIFICANT CHANGE WAS FOUND Confirmed by FATOU RAYO, IVONNE ([id number]) on 06/18/2018 6:31:40 PM Referred By: Sabrina LUCIANO Confirmed By:IVONNE LAINEZ MD
--- NOTE | 2018-06-18 19:07 | EKG ---
Test Reason : Blood Pressure : / mmHG Vent. Rate : 070 BPM Atrial Rate : 070 BPM P-R Int : 128 ms QRS Dur : 092 ms QT Int : 472 ms P-R-T Axes : 065 005 174 degrees QTc Int : 509 ms NORMAL SINUS RHYTHM POSSIBLE LEFT ATRIAL ENLARGEMENT LEFT VENTRICULAR HYPERTROPHY WITH REPOLARIZATION ABNORMALITY PROLONGED QT ABNORMAL ECG NO PREVIOUS ECGS AVAILABLE Confirmed by IVONNE LAINEZ MD ([id number]) on 06/18/2018 7:06:55 PM Referred By: Confirmed By:IVONNE LAINEZ MD
[2018-06-18] MEDS: ATORVASTATIN CA 80 MG TABLET (FP) PO SCH (22:05)
[2018-06-19] MEDS ORDERED: ACETAMINOPHEN 325 MG TABLET (FP) PO ONE (02:59)
[2018-06-19] MEDS: HEPARIN NA (PORCINE) 5,000 UNITS/ML 1ML VIAL SQ SCH ×3 (06:40→23:09)
--- NOTE | 2018-06-19 09:49 | PN ---
Progress Note, Physician History of Present Illness: Mr. Flaherty is a 57 yo male w/ pmh of HTN and HLD who presents for evaluation of sudden onset weakness earlier today. Patient reports he has been feeling his normal self until shortly before presentation when he became generally weak throughout his body and slumped down. Denies hitting his head or any LOC however. Of note, Mr. Flaherty reports he checked his BP this morning and found it to be 230 systolic. Reports a minor generalized headache at this time. He denies any other complaints. - Current Medication List Current Medications: Active Medications Amlodipine Besylate (Norvasc -) 10 mg PO DAILY [facility] Last Admin: 06/18/18 09:16 Dose: 10 mg Atorvastatin Calcium (Lipitor -) 80 mg PO HS [facility] Last Admin: 06/18/18 22:05 Dose: 80 mg Carvedilol (Coreg -) 25 mg PO BID [facility] Last Admin: 06/18/18 22:05 Dose: 25 mg Clonidine (Catapres -) 0.3 mg PO BID [facility] Last Admin: 06/18/18 22:05 Dose: 0.3 mg Heparin Sodium (Porcine) (Heparin -) 5,000 unit SQ TID [facility] Last Admin: 06/19/18 06:40 Dose: 5,000 unit Sodium Chloride (1/2 Normal Saline) 1,000 mls @ 75 mls/hr IV ASDIR [facility] Last Admin: 06/18/18 22:09 Dose: 75 mls/hr - Objective Vital Signs: Vital Signs Temperature 98.0 F 06/19/18 08:54 Pulse Rate 68 06/19/18 08:54 Respiratory Rate 16 06/19/18 08:54 Blood Pressure 132/84 06/19/18 08:54 O2 Sat by Pulse Oximetry (%) 100 06/19/18 08:47 Eyes: Yes: WNL, Conjunctiva Clear, EOM Intact HENT: Yes: WNL, Atraumatic, Normocephalic Neck: Yes: WNL, Supple, Trachea Midline Cardiovascular: Yes: WNL, Regular Rate and Rhythm Respiratory: Yes: WNL, Regular, CTA Bilaterally Gastrointestinal: Yes: WNL, Normal Bowel Sounds Genitourinary: Yes: WNL Musculoskeletal: Yes: WNL Extremities: Yes: WNL Edema: No Integumentary: Yes: WNL Neurological: Yes: WNL, Alert, Oriented ...Motor Strength: WNL Psychiatric: Yes: WNL Labs: CBC, BMP 06/18/18 05:25 06/18/18 05:25 INR, PTT INR 1.13 (0.83-1.09) H 06/18/18 05:25 Assessment/Plan - Problems (1) HTN (hypertension) Code(s): I10 - ESSENTIAL (PRIMARY) HYPERTENSION (2) Near syncope Assessment/Plan: orthotstatic vital signs . Hydration; f/u Is and Os, dialy weight, BUn/Dr, eelectrolytes. Carotid artery stenosis: f/u with vascualr surgeon. F/u CAD w/u. ECHO for LVEF, wall motion, r/o thrombus, wall thickness., valve status. Code(s): R55 - SYNCOPE AND COLLAPSE (3) Hyperlipidemia Assessment/Plan: statin started. Code(s): E78.5 - HYPERLIPIDEMIA, UNSPECIFIED (4) CAD (coronary artery disease) Assessment/Plan: Pt with hx 2 coronary stents placed ?2011 in [place]. Denies hx [place]. Reports haveing stress MIBI at [facility] ?2017. Start statin (elevated LDL and triglycerides). BP control. If stress MIBI was noted recent, will repeat. 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 Code(s): N28.9 - DISORDER OF KIDNEY AND URETER, UNSPECIFIED (6) Carotid artery stenosis Assessment/Plan: Aggressive control of BP, lipids. May require CTA or MRA. F/u with vascular surgeon. Code(s): I65.29 - OCCLUSION AND STENOSIS OF UNSPECIFIED CAROTID ARTERY (7) NSVT (nonsustained ventricular tachycardia) Assessment/Plan: Ventricular triplets on telemtry. F/u electrolytes. ECHO for LVEF, wall motion, valve status. F/u workup for progressive CAD and carotid artery disease. Code(s): I47.2 - VENTRICULAR TACHYCARDIA (8) LVH (left ventricular hypertrophy) Assessment/Plan: EKG : NSR; marked LVH with repolarization abnormalities.likely 2ndary to HTN. F?u TNI. F/u ECHO for LVEF, wall thickness and motion, valve status. +Carotid artery stenosis: f/u with vascular surgeon. Coronary artery evaluation : stress MIBI, if not done recently. BP conrol. Code(s): I51.7 - CARDIOMEGALY
[2018-06-19] MEDS: CARVEDILOL 25 MG TABLET (FP) PO SCH ×2 (10:11→23:09)
[2018-06-19] MEDS: amLODIPine BESYLATE 10 MG TABLET (FP) PO SCH (10:11)
[2018-06-19] MEDS: cloNIDine HCL 0.1 MG TABLET PO SCH ×2 (10:11→23:09)
[2018-06-19 11:08] LABS: ANION GAP 10 MMOL/L (8-16); BLOOD UREA NITROGEN 45 mg/dL (7-18); CALCIUM 8.1 mg/dL (8.5-10.1); CHLORIDE 108 mmol/L (98-107); CO2 26 mmol/L (21-32); CREATININE 2.3 mg/dL (0.55-1.3); GLUCOSE,RANDOM 118 mg/dL (74-106); POTASSIUM 3.6 mmol/L (3.5-5.1); SODIUM 143 mmol/L (136-145)
--- NOTE | 2018-06-19 11:21 | PN ---
Physical Exam: SUBJECTIVE: Patient seen and examined at bedside this morning. Patient denies acute complaints of headache, shortness of breath, cough, chest pain, palpitations, abdominal pain, nausea, vomiting. OBJECTIVE: Vital Signs Period Temp Pulse Resp BP Sys/[place]omas Pulse Ox Last 24 Hr 97.8 F-98.0 F 59-68 16-20 132-143/76-87 99-100 GENERAL: The patient is awake, alert, and fully oriented, in no acute distress. HEAD: Normocephalic, atraumatic EYES: PERRL, extraocular movements intact, sclera anicteric. ENT: Oropharynx clear without exudates, moist mucous membranes. NECK: Trachea midline, full range of motion, supple. LUNGS: Breath sounds equal, clear to auscultation bilaterally, no wheezes, no crackles. HEART: Regular rate and rhythm, S1, S2 without murmur, rub or gallop. ABDOMEN: Soft, nontender, nondistended. Normoactive bowel sounds, no guarding, no rebound tenderness. EXTREMITIES: 2+ radial and dorsalis pedis pulses b/l. No edema bilateral lower extremities NEUROLOGICAL: Cranial nerves II through XII grossly intact. Normal speech. PSYCH: Normal mood, normal affect upon my encounter today. SKIN: Warm, dry. Excoriations with tracking noted on bilateral upper extremities. Laboratory Results - last 24 hr 06/17/18 06/17/18 06/17/18 14:30 14:30 14:30 POC Glucometer Troponin I Urine Color Yellow Urine Appearance Clear Urine pH 5.0 Ur Specific [place] 1.018 Urine Protein 2+ H Urine Glucose (UA) Negative Urine Ketones Negative Urine Blood Negative Urine Nitrite Negative Urine Bilirubin Negative Urine Urobilinogen Negative Ur Leukocyte Esterase Negative Urine WBC (Auto) <1 Urine RBC (Auto) None Ur Epithelial Cells Rare Hyaline Casts 4 Urine Mucus Rare Ur Random Sodium 26 L Ur Random Potassium 54.2 Ur Random Chloride 31 L Urine Creatinine 219.0 H Opiates Screen Negative Methadone Screen Negative Barbiturate Screen Negative Phencyclidine Screen Negative Ur Amphetamines Screen Negative MDMA (Ecstasy) Screen Negative Benzodiazepines Screen Negative Cocaine Screen Negative U Marijuana (THC) Screen Negative 06/18/18 06/18/18 11:30 16:36 POC Glucometer 157 Troponin I 0.05 Urine Color Urine Appearance Urine pH Ur Specific [place] Urine Protein Urine Glucose (UA) Urine Ketones Urine Blood Urine Nitrite Urine Bilirubin Urine Urobilinogen Ur Leukocyte Esterase Urine WBC (Auto) Urine RBC (Auto) Ur Epithelial Cells Hyaline Casts Urine Mucus Ur Random Sodium Ur Random Potassium Ur Random Chloride Urine Creatinine Opiates Screen Methadone Screen Barbiturate Screen Phencyclidine Screen Ur Amphetamines Screen MDMA (Ecstasy) Screen Benzodiazepines Screen Cocaine Screen U Marijuana (THC) Screen Active Medications Generic Name Dose Route Start Last Admin Trade Name Freq PRN Reason Stop Dose Admin Amlodipine Besylate 10 mg 06/18/18 10:00 06/19/18 10:11 Norvasc - PO 10 mg DAILY MICK Administration Atorvastatin Calcium 80 mg 06/17/18 22:00 06/18/18 22:05 Lipitor - PO 80 mg HS MICK Administration Carvedilol 25 mg 06/17/18 22:00 06/19/18 10:11 Coreg - PO 25 mg BID MICK Administration Clonidine 0.3 mg 06/17/18 22:00 06/19/18 10:11 Catapres - PO 0.3 mg BID MICK Administration Heparin Sodium (Porcine) 5,000 unit 06/18/18 14:00 06/19/18 06:40 Heparin - SQ 5,000 unit TID MICK Administration Sodium Chloride 1,000 mls @ 75 mls/hr 06/18/18 18:00 06/18/18 22:09 1/2 Normal Saline IV 75 mls/hr ASDIR MICK Administration ASSESSMENT/PLAN: Patient is a 57 year old male with history of hypertension, hyperlipidema, prior CA presents with sudden onset of dizziness and weakness. Presyncopal episode -Carotid duplex shows 79% stenosis of rightinternal carotid artery. Follow vascular surgery consult (Dr. Keita) -CT head negative for acute intracranial pathology -Cardiology consult (Dr. Quintanilla) appreciated. -Will attempt to obtain records from prior hospitalizations -Cardiac ECHO -No acute overnight events noted on Telemetry monitoring -Attempting to obtain cardiac records from prior hospitalization at [facility]. SACIHN on CKD -Renal US shows echogenic kidneys without hydronephrosis or acute pathology -Urine studies show low urine sodium and chloride, with increased urine creatinine -Nephrology consult (Dr. Colin) appreciated -Attempting to obtain baseline Creatinine from prior hospitalization at [facility]. -Holding home Lasix -1/2 NS at 75mL/ hour Hypertension -Amlodipine 10mg PO daily -Carvedilol 25mg PO BID -Clonidine 0.3mg PO BID Hyperlipidemia -Atorvastatin 80mg PO HS Scabies vs. bedbug infestation -Permethrin 5% topical cream Prophylaxis -Heparin 5000u subq TID FEN -1/2 NS at 75mL/ hour -Follow CMP -Renal modified diet Disposition -Continue care in Telemetry floor. Visit type - Emergency Visit Emergency Visit: Yes ED Registration Date: 06/17/18 Care time: The patient presented to the Emergency Department on the above date and was hospitalized for further evaluation of their emergent condition. - New Patient This patient is new to me today: Yes Date on this admission: 06/19/18 - Critical Care Critical Care patient: No - Discharge Referral Referred to [facility] Med P.C.: No
--- NOTE | 2018-06-19 14:05 | ECHO ---
Name: IRIS CAST Exam:Adult Echocardiogram Study Date: 06/19/2018 10:47 AM Age: 57 yrs Reason For Study: PRE SYNCOPE Height: 62 in Weight: 133 lb BSA: 1.6 m2 MMode/2D Measurements & Calculations IVSd: 1.3 cm Ao root diam: 3.0 cm LVIDd: 4.7 cm LA dimension: 4.2 cm LVIDs: 3.7 cm LVPWd: 1.3 cm EDV(Teich): 104.7 ml LVOT diam: 2.0 cm ESV(Teich): 57.6 ml Doppler Measurements & Calculations MV E max earl: 89.3 cm/sec Ao V2 max: 200.3 cm/sec MV A max earl: 87.4 cm/sec Ao max P.0 mmHg MV E/A: 1.0 Ao V2 mean: 140.9 cm/sec MV dec time: 0.23 sec Ao mean P.1 mmHg Ao V2 VTI: 41.7 cm TRACIE(I,D): 1.2 cm2 TRACIE(V,D): 1.2 cm2 LV V1 max P.3 mmHg MR max earl: 402.5 cm/sec LV V1 mean P.91 mmHg MR max P.8 mmHg LV V1 max: 75.9 cm/sec LV V1 mean: 43.2 cm/sec LV V1 VTI: 15.4 cm SV(LVOT): 48.8 ml TR max earl: 233.2 cm/sec TR max P.9 mmHg PI end-d earl: 77.2 cm/sec Med Peak E' Earl: 4.1 cm/sec Med E/e': 21.8 Lat Peak E' Earl: 6.1 cm/sec Lat E/e': 14.5 Procedure A complete two-dimensional transthoracic echocardiogram was performed (2D, M-mode, Doppler and color flow Doppler). Left Ventricle The left ventricle is normal in size. There is moderate concentric left ventricular hypertrophy. Left ventricular systolic function is low normal. Ejection Fraction = 50-55%. Diastolic dysfunction, Grade II, consistent with elevated left atrial pressure. Ratio E/E'= 21. No regional wall motion abnormalities noted. Right Ventricle The right ventricle is normal size. The right ventricular systolic function is normal. RV systolic TD I is 12 cm/s. Atria The left atrium is mildly dilated. Right atrial size is normal. Mitral Valve There is mild mitral annular calcification. There is mild to moderate mitral regurgitation. Tricuspid Valve The tricuspid valve is normal in structure and function. No tricuspid regurgitation. Aortic Valve There is mild to moderate aortic sclerosis.;. There is mild aortic valve thickening. Mild valvular ao rtic stenosis. The calculated aortic valve area using the continuity equation is 1.2 cm2. Aortic mean pres sure gradient= 9 mmHg. DI (dimensionless index) is 0.37. No aortic regurgitation is present. Pulmonic Valve The pulmonic valve is not well visualized. Trace pulmonic valvular regurgitation. Great Vessels The aortic root is normal size. Pericardium/Pleura There is no pericardial effusion. Interpretation Summary The left ventricle is normal in size. There is moderate concentric left ventricular hypertrophy. Left ventricular systolic function is low normal. No regional wall motion abnormalities noted. Ejection Fraction = 50-55%. Diastolic dysfunction, Grade II, consistent with elevated left atrial pressure. Ratio E/E'= 21 The right ventricular systolic function is normal. The left atrium is mildly dilated. Right atrial size is normal. There is mild mitral annular calcification. There is mild to moderate mitral regurgitation. There is mild to moderate aortic sclerosis. There is mild aortic valve thickening. Mild valvular aortic stenosis. The calculated aortic valve area using the continuity equation is 1.2 cm2. Aortic mean pressure gradient= 9 mmHg DI (dimensionless index) is 0.37 No aortic regurgitation is present. Trace pulmonic valvular regurgitation. There is no pericardial effusion. Previous study is not available for comparison Migel Flowers MD 06/19/2018 02:05 PM
--- NOTE | 2018-06-19 15:00 | PN ---
Teaching Attending Note Name of Resident: Sahil Wade ATTENDING PHYSICIAN STATEMENT I saw and evaluated the patient. I reviewed the resident's note and discussed the case with the resident. I agree with the resident's findings and plan as documented. SUBJECTIVE: Feels well. No further episodes of pre-/syncope. No chest pain/ palpitations. OBJECTIVE: Afebrile/Hemodynamically Stable. Last Vital Signs Temp Pulse Resp BP Pulse Ox 98.0 F 68 16 132/84 100 06/19/18 08:54 06/19/18 08:54 06/19/18 08:54 06/19/18 08:54 06/19/18 08:47 HEENT - Atraumatic, Normocephalic. Heart - S1, S2, RRR Lungs - clear to auscultation, no crackles/wheeze Abdomen - Soft, non-tender. Bowel Sounds normal. Extremities - no edema. No calf tenderness. Neuro - AAO x 3. Tone/Power normal all 4 extremities Skin - bite allen ventral aspect UEs, less erythematous than yesterday. Laboratory Results - last 24 hr 06/17/18 06/17/18 06/17/18 14:30 14:30 14:30 Sodium Potassium Chloride Carbon Dioxide Anion Gap BUN Creatinine Creat Clearance w eGFR POC Glucometer Random Glucose Calcium Urine Color Yellow Urine Appearance Clear Urine pH 5.0 Ur Specific Fraser 1.018 Urine Protein 2+ H Urine Glucose (UA) Negative Urine Ketones Negative Urine Blood Negative Urine Nitrite Negative Urine Bilirubin Negative Urine Urobilinogen Negative Ur Leukocyte Esterase Negative Urine WBC (Auto) <1 Urine RBC (Auto) None Ur Epithelial Cells Rare Hyaline Casts 4 Urine Mucus Rare Ur Random Sodium 26 L Ur Random Potassium 54.2 Ur Random Chloride 31 L Urine Creatinine 219.0 H Opiates Screen Negative Methadone Screen Negative Barbiturate Screen Negative Phencyclidine Screen Negative Ur Amphetamines Screen Negative MDMA (Ecstasy) Screen Negative Benzodiazepines Screen Negative Cocaine Screen Negative U Marijuana (THC) Screen Negative 06/18/18 06/19/18 16:36 10:20 Sodium 143 Potassium 3.6 Chloride 108 H Carbon Dioxide 26 Anion Gap 10 BUN 45 H Creatinine 2.3 H Creat Clearance w eGFR 29.46 POC Glucometer 157 Random Glucose 118 H Calcium 8.1 L Urine Color Urine Appearance Urine pH Ur Specific Fraser Urine Protein Urine Glucose (UA) Urine Ketones Urine Blood Urine Nitrite Urine Bilirubin Urine Urobilinogen Ur Leukocyte Esterase Urine WBC (Auto) Urine RBC (Auto) Ur Epithelial Cells Hyaline Casts Urine Mucus Ur Random Sodium Ur Random Potassium Ur Random Chloride Urine Creatinine Opiates Screen Methadone Screen Barbiturate Screen Phencyclidine Screen Ur Amphetamines Screen MDMA (Ecstasy) Screen Benzodiazepines Screen Cocaine Screen U Marijuana (THC) Screen Current Medications Generic Name Dose Route Start Last Admin Trade Name Freq PRN Reason Stop Dose Admin Amlodipine Besylate 10 mg 06/18/18 10:00 06/19/18 10:11 Norvasc - PO 10 mg DAILY MICK Administration Atorvastatin Calcium 80 mg 06/17/18 22:00 06/18/18 22:05 Lipitor - PO 80 mg HS MICK Administration Carvedilol 25 mg 06/17/18 22:00 06/19/18 10:11 Coreg - PO 25 mg BID MICK Administration Clonidine 0.3 mg 06/17/18 22:00 06/19/18 10:11 Catapres - PO 0.3 mg BID MICK Administration Heparin Sodium (Porcine) 5,000 unit 06/18/18 14:00 06/19/18 14:29 Heparin - SQ 5,000 unit TID MICK Administration Sodium Chloride 1,000 mls @ 75 mls/hr 06/18/18 18:00 06/18/18 22:09 1/2 Normal Saline IV 75 mls/hr ASDIR MICK Administration ASSESSMENT/PLAN 57 year old Male with HTN, HLD, CAD s/p SD (s/p Stent x 2), possible CKD, admitted with lightheaded episode with weakness necessitating him to lay on the floor - denies LOC/HI. No preceding chest pain/palpitations. 1. Presyncopal Episode Etiology unclear, likely vasovagal Carotid Duplex - 79% stenosis R ICA, no Hx CVA Echo - moderate LVH, EF 50%, Grade II diastolic dysfunction, Mild . CT Brain neg for acute intracranial findings. No overnight tele events. Vascular Surgery consulted re: Carotid Stenosis 2. Elevated Troponin/ Background Hx CAD s/p SD s/p Stent x 2 (>10 years ago) Likely secondary to demand - TropI max 0.06 Denies Chest Pain ECG - SR, LVH, QTc 505. Does not appear to be on ASA. Continue BB, Statin. Cardiology consulted - recommend getting records from [facility] for details regarding Stress Test apparently done in 2017. 3. Possible SACHIN on likely CKD Creat 2.5 on presentation, now 2.3 Baseline Creat unknown Patient apparently on Lasix at home for likely chronic diastolic CHF. Renal US - medical renal disease, no hydronephrosis. Continue IV fluids 1/2 NS for now. Lasix held. Nephrology consulted. 4. HTN - Continue Norvasc, Carvedilol, Clonidine 5. HLD - Continue Atorvastatin 6. Rash, possible bed bugs vs scabies. Isolation. Received Permethrin treatment 06/18/18. DVT Px - Heparin SQ
--- NOTE | 2018-06-19 15:06 | PN ---
Progress Note, Physician History of Present Illness: Pt seen and examined at bedside. He has no complaints. He denies dysuria or hematuria. - Current Medication List Current Medications: Active Medications Amlodipine Besylate (Norvasc -) 10 mg PO DAILY [facility] Last Admin: 06/19/18 10:11 Dose: 10 mg Atorvastatin Calcium (Lipitor -) 80 mg PO HS [facility] Last Admin: 06/18/18 22:05 Dose: 80 mg Carvedilol (Coreg -) 25 mg PO BID [facility] Last Admin: 06/19/18 10:11 Dose: 25 mg Clonidine (Catapres -) 0.3 mg PO BID [facility] Last Admin: 06/19/18 10:11 Dose: 0.3 mg Heparin Sodium (Porcine) (Heparin -) 5,000 unit SQ TID [facility] Last Admin: 06/19/18 14:29 Dose: 5,000 unit Sodium Chloride (1/2 Normal Saline) 1,000 mls @ 75 mls/hr IV ASDIR [facility] Last Admin: 06/18/18 22:09 Dose: 75 mls/hr - Objective Vital Signs: Vital Signs Temperature 98.0 F 06/19/18 08:54 Pulse Rate 68 06/19/18 08:54 Respiratory Rate 16 06/19/18 08:54 Blood Pressure 132/84 06/19/18 08:54 O2 Sat by Pulse Oximetry (%) 100 06/19/18 08:47 Constitutional: Yes: Calm Eyes: Yes: Conjunctiva Clear HENT: Yes: Atraumatic Neck: Yes: Supple Cardiovascular: Yes: S1, S2 Respiratory: Yes: CTA Bilaterally Gastrointestinal: Yes: Soft Genitourinary: Yes: WNL Musculoskeletal: Yes: WNL Edema: No Neurological: Yes: Oriented Psychiatric: Yes: Oriented Labs: CBC, BMP 06/18/18 05:25 06/19/18 10:20 INR, PTT INR 1.13 (0.83-1.09) H 06/18/18 05:25 Problem List - Problems (1) CAD (coronary artery disease) Code(s): I25.10 - ATHSCL HEART DISEASE OF [place] CORONARY ARTERY W/O ANG PCTRS (2) CKD (chronic kidney disease) Code(s): N18.9 - CHRONIC KIDNEY DISEASE, UNSPECIFIED Qualifiers: Qualified Code(s): N18.9 - Chronic kidney disease, unspecified (3) Carotid artery stenosis Code(s): I65.29 - OCCLUSION AND STENOSIS OF UNSPECIFIED CAROTID ARTERY (4) HTN (hypertension) Code(s): I10 - ESSENTIAL (PRIMARY) HYPERTENSION (5) Hyperlipidemia Code(s): E78.5 - HYPERLIPIDEMIA, UNSPECIFIED (6) Near syncope Code(s): R55 - SYNCOPE AND COLLAPSE Assessment/Plan Current Medications Generic Name Dose Route Start Last Admin Trade Name Freq PRN Reason Stop Dose Admin Amlodipine Besylate 10 mg 06/18/18 10:00 06/19/18 10:11 Norvasc - PO 10 mg DAILY MICK Administration Atorvastatin Calcium 80 mg 06/17/18 22:00 06/18/18 22:05 Lipitor - PO 80 mg HS MICK Administration Carvedilol 25 mg 06/17/18 22:00 06/19/18 10:11 Coreg - PO 25 mg BID MICK Administration Clonidine 0.3 mg 06/17/18 22:00 06/19/18 10:11 Catapres - PO 0.3 mg BID MICK Administration Heparin Sodium (Porcine) 5,000 unit 06/18/18 14:00 06/19/18 14:29 Heparin - SQ 5,000 unit TID MICK Administration Sodium Chloride 1,000 mls @ 75 mls/hr 06/18/18 18:00 06/18/18 22:09 1/2 Normal Saline IV 75 mls/hr ASDIR MICK Administration Impression 1. CKD with unclear baseline 2. pre-syncope 3. carotid stenosis 4. HTN 5. CAD 6. 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
--- NOTE | 2018-06-19 15:25 | CONSULT ---
- Consultation REQUESTING PROVIDER: CONSULT REQUEST: We have been asked to surgically evaluate this patient for carotid stenosis PCP:Dayo Nicole MD HISTORY OF PRESENT ILLNESS: 57yo M who was admitted to the hospital for dizziness and weakness, had a carotid duplex done as part of his workup. Pt denies vision changes, current weakness, or numbness. PMHx: HTN, HLD Home Medications Medication Instructions Recorded Amlodipine Besylate [Norvasc -] 10 mg PO DAILY 06/17/18 Atorvastatin Ca [Lipitor] 80 mg PO HS 06/17/18 Carvedilol [Coreg -] 25 mg PO BID 06/17/18 Clonidine HCl 0.3 mg PO BID 06/17/18 Furosemide [Lasix -] 20 mg PO DAILY 06/17/18 Allergies Allergy/AdvReac Type Severity Reaction Status Date / Time No Known Allergies Allergy Verified 06/17/18 16:38 PHYSICAL EXAM: GENERAL: Awake, alert, and fully oriented, in no acute distress. HEAD: Normal with no signs of trauma. EYES: PERRL, sclera anicteric, conjunctiva clear. NECK: Normal ROM, supple without lymphadenopathy, JVD, or masses. LUNGS: Clear to auscultation bilat anteriorly. No wheezes, and no crackles. No accessory muscle use. HEART: Regular rate and rhythm. No murmurs ABDOMEN: Soft, nontender, not distended, normoactive bowel sounds, no guarding, no rebound, no masses. No organomegaly. UPPER EXTREMITIES: 2+ pulses, warm, well-perfused. No cyanosis. Cap refill <2 seconds. No peripheral edema. LOWER EXTREMITIES: 2+ pulses, warm, well-perfused. No calf tenderness. No peripheral edema. NEUROLOGICAL: Normal speech, gait not observed. PSYCH: Cooperative. Good eye contact. Appropriate mood and affect. SKIN: Warm, dry, normal turgor, no rashes or lesions noted. Vital Signs Temperature 98.0 F 06/19/18 08:54 Pulse Rate 68 06/19/18 08:54 Respiratory Rate 16 06/19/18 08:54 Blood Pressure 132/84 06/19/18 08:54 O2 Sat by Pulse Oximetry (%) 100 06/19/18 08:47 Lab Results WBC 6.1 K/mm3 (4.0-10.0) 06/18/18 05:25 RBC 4.23 M/mm3 (4.00-5.60) 06/18/18 05:25 Hgb 10.9 GM/dL (11.7-16.9) L 06/18/18 05:25 Hct 32.7 % (35.4-49) L 06/18/18 05:25 MCV 77.4 fl (80-96) L 06/18/18 05:25 MCHC 33.5 g/dl (32.0-35.9) 06/18/18 05:25 RDW 18.2 % (11.9-15.9) H 06/18/18 05:25 Plt Count 205 K/MM3 (134-434) 06/18/18 05:25 Sodium 143 mmol/L (136-145) 06/19/18 10:20 Potassium 3.6 mmol/L (3.5-5.1) 06/19/18 10:20 Chloride 108 mmol/L (98-107) H 06/19/18 10:20 Carbon Dioxide 26 mmol/L (21-32) 06/19/18 10:20 Anion Gap 10 MMOL/L (8-16) 06/19/18 10:20 BUN 45 mg/dL (7-18) H 06/19/18 10:20 Creatinine 2.3 mg/dL (0.55-1.3) H 06/19/18 10:20 Random Glucose 118 mg/dL (74-106) H 06/19/18 10:20 Calcium 8.1 mg/dL (8.5-10.1) L 06/19/18 10:20 Blood Type O POSITIVE 06/18/18 08:10 Antibody Screen Negative 06/18/18 05:25 INR 1.13 (0.83-1.09) H 06/18/18 05:25 Carotid duplex: 70-80% stenosis of right internal carotid Problem List - Problems (1) Carotid artery stenosis Assessment/Plan: Plan -carotid stenosis most likely unrelated to presyncope episode. -pt should have 6 month carotid dopplar follow up with PCP -no surgical intervention at this time. Case discussed with Dr. Keita who agrees with plan Code(s): I65.29 - OCCLUSION AND STENOSIS OF UNSPECIFIED CAROTID ARTERY
[2018-06-19] MEDS: ASPIRIN 81 MG CHEWABLE TABLETS PO SCH (16:50)
[2018-06-19] MEDS ORDERED: diphenhydrAMINE HCL 25 MG CAPSULE (FP) PO ONE (23:01)
[2018-06-19] MEDS: ATORVASTATIN CA 80 MG TABLET (FP) PO SCH (23:09)
[2018-06-20] MEDS: HEPARIN NA (PORCINE) 5,000 UNITS/ML 1ML VIAL SQ SCH ×2 (05:59→14:46)
[2018-06-20 07:02] LABS: HEMATOCRIT 33.1 % (35.4-49); MCH 25.7 pg (25.7-33.7); MCHC 33.1 g/dl (32.0-35.9); MEAN CELL VOLUME 77.7 fl (80-96); MEAN PLT VOLUME 9.1 fl (7.5-11.1); PLATELET COUNT 227 K/MM3 (134-434); RBC 4.26 M/mm3 (4.00-5.60); WHITE BLOOD COUNT 5.8 K/mm3 (4.0-10.0)
[2018-06-20 07:32] LABS: ALBUMIN 3.1 g/dl (3.4-5.0); ALK PHOS 118 U/L (45-117); ANION GAP 11 MMOL/L (8-16); BILIRUBIN,TOTAL 0.5 mg/dL (0.2-1); BLOOD UREA NITROGEN 47 mg/dL (7-18); CALCIUM 7.5 mg/dL (8.5-10.1); CHLORIDE 107 mmol/L (98-107); CO2 26 mmol/L (21-32); CREATININE 2.4 mg/dL (0.55-1.3); GLUCOSE,RANDOM 77 mg/dL (74-106); POTASSIUM 3.6 mmol/L (3.5-5.1); SGOT/AST 31 U/L (15-37); SGPT/ALT 43 U/L (13-61); SODIUM 144 mmol/L (136-145); TOT PROT 6.2 g/dl (6.4-8.2)
[2018-06-20] MEDS ORDERED: REGADENOSON 0.4 MG/5 ML PRE-FILLED SYRINGE IVPUSH ONE ×2 (10:41→11:30)
[2018-06-20] MEDS ORDERED: AMINOPHYLLINE 250 MG/10 ML VIAL ONE (11:00)
[2018-06-20] MEDS ORDERED: AMINOPHYLLINE 250 MG/10 ML VIAL IVPUSH ONE (11:30)
[2018-06-20] MEDS: cloNIDine HCL 0.1 MG TABLET PO SCH (12:14)
[2018-06-20] MEDS: ASPIRIN 81 MG CHEWABLE TABLETS PO SCH (12:15)
[2018-06-20] MEDS: amLODIPine BESYLATE 10 MG TABLET (FP) PO SCH (12:15)
[2018-06-20 13:00] LABS: HEMATOCRIT 36.6 % (35.4-49); HEMOGLOBIN 12.1 GM/dL (11.7-16.9); MCH 25.8 pg (25.7-33.7); MCHC 33.1 g/dl (32.0-35.9); PLATELET COUNT 254 K/MM3 (134-434); RDW 18.3 % (11.9-15.9); WHITE BLOOD COUNT 7.8 K/mm3 (4.0-10.0)
--- NOTE | 2018-06-20 13:43 | PN ---
Progress Note, Physician History of Present Illness: Pt seen and examined at bedside. He denies shortness of breath. - Current Medication List Current Medications: Active Medications Amlodipine Besylate (Norvasc -) 10 mg PO DAILY [facility] Last Admin: 06/20/18 12:15 Dose: 10 mg Aspirin (Asa -) 81 mg PO DAILY [facility] Last Admin: 06/20/18 12:15 Dose: 81 mg Atorvastatin Calcium (Lipitor -) 80 mg PO HS [facility] Last Admin: 06/19/18 23:09 Dose: 80 mg Carvedilol (Coreg -) 25 mg PO BID [facility] Last Admin: 06/19/18 23:09 Dose: 25 mg Clonidine (Catapres -) 0.3 mg PO BID [facility] Last Admin: 06/20/18 12:14 Dose: 0.3 mg Heparin Sodium (Porcine) (Heparin -) 5,000 unit SQ TID [facility] Last Admin: 06/20/18 05:59 Dose: 5,000 unit - Objective Vital Signs: Vital Signs Temperature 98.0 F 06/20/18 08:17 Pulse Rate 71 06/20/18 08:17 Respiratory Rate 18 06/20/18 08:19 Blood Pressure 142/79 06/20/18 08:17 O2 Sat by Pulse Oximetry (%) 100 06/19/18 08:47 Constitutional: Yes: Calm Eyes: Yes: Conjunctiva Clear HENT: Yes: Atraumatic Neck: Yes: Supple Cardiovascular: Yes: S1, S2 Respiratory: Yes: CTA Bilaterally Gastrointestinal: Yes: Normal Bowel Sounds, Soft Genitourinary: Yes: WNL Musculoskeletal: Yes: WNL Edema: No Neurological: Yes: Oriented Psychiatric: Yes: Oriented Labs: CBC, BMP 06/20/18 12:20 06/20/18 05:30 INR, PTT INR 1.13 (0.83-1.09) H 06/18/18 05:25 Problem List - Problems (1) CAD (coronary artery disease) Code(s): I25.10 - ATHSCL HEART DISEASE OF [place] CORONARY ARTERY W/O ANG PCTRS (2) CKD (chronic kidney disease) Code(s): N18.9 - CHRONIC KIDNEY DISEASE, UNSPECIFIED Qualifiers: Qualified Code(s): N18.9 - Chronic kidney disease, unspecified (3) Carotid artery stenosis Code(s): I65.29 - OCCLUSION AND STENOSIS OF UNSPECIFIED CAROTID ARTERY (4) HTN (hypertension) Code(s): I10 - ESSENTIAL (PRIMARY) HYPERTENSION (5) Hyperlipidemia Code(s): E78.5 - HYPERLIPIDEMIA, UNSPECIFIED (6) Near syncope Code(s): R55 - SYNCOPE AND COLLAPSE Assessment/Plan Current Medications Generic Name Dose Route Start Last Admin Trade Name Freq PRN Reason Stop Dose Admin Amlodipine Besylate 10 mg 06/18/18 10:00 06/20/18 12:15 Norvasc - PO 10 mg DAILY MICK Administration Aspirin 81 mg 06/19/18 15:45 06/20/18 12:15 Asa - PO 81 mg DAILY MICK Administration Atorvastatin Calcium 80 mg 06/17/18 22:00 06/19/18 23:09 Lipitor - PO 80 mg HS MICK Administration Carvedilol 25 mg 06/17/18 22:00 06/19/18 23:09 Coreg - PO 25 mg BID MICK Administration Clonidine 0.3 mg 06/17/18 22:00 06/20/18 12:14 Catapres - PO 0.3 mg BID MICK Administration Heparin Sodium (Porcine) 5,000 unit 06/18/18 14:00 06/20/18 05:59 Heparin - SQ 5,000 unit TID MICK Administration Impression 1. CKD with unclear baseline 2. pre-syncope 3. carotid stenosis 4. HTN 5. CAD 6. 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
--- NOTE | 2018-06-20 13:54 | PN ---
Teaching Attending Note Name of Resident: Sahil Wade ATTENDING PHYSICIAN STATEMENT I saw and evaluated the patient. I reviewed the resident's note and discussed the case with the resident. I agree with the resident's findings and plan as documented. SUBJECTIVE: Patient has no complaints. He denies CP, SOB, palpitations. OBJECTIVE: Vital Signs Period Temp Pulse Resp BP Sys/Lomas Pulse Ox Last 24 Hr 97.3 F-98.6 F 61-71 18-20 130-153/67-83 HEART: S1S2, RRR LUNGS: Clear ABDOMEN: Soft, non-tender, non-distended, normal BS EXTREMITIES: No edema Laboratory Results - last 24 hr 06/20/18 06/20/18 06/20/18 05:30 05:30 12:20 WBC 5.8 7.8 RBC 4.26 4.70 Hgb 11.0 L 12.1 Hct 33.1 L 36.6 MCV 77.7 L 78.0 L MCH 25.7 25.8 MCHC 33.1 33.1 RDW 18.0 H 18.3 H Plt Count 227 254 MPV 9.1 9.0 Sodium 144 Potassium 3.6 Chloride 107 Carbon Dioxide 26 Anion Gap 11 BUN 47 H Creatinine 2.4 H Creat Clearance w eGFR 28.04 Random Glucose 77 Calcium 7.5 L Total Bilirubin 0.5 AST 31 ALT 43 Alkaline Phosphatase 118 H Creatine Kinase 126 Troponin I 0.03 Total Protein 6.2 L Albumin 3.1 L Current Medications Generic Name Dose Route Start Last Admin Trade Name Freq PRN Reason Stop Dose Admin Amlodipine Besylate 10 mg 06/18/18 10:00 06/20/18 12:15 Norvasc - PO 10 mg DAILY MICK Administration Aspirin 81 mg 06/19/18 15:45 06/20/18 12:15 Asa - PO 81 mg DAILY MICK Administration Atorvastatin Calcium 80 mg 06/17/18 22:00 06/19/18 23:09 Lipitor - PO 80 mg HS MICK Administration Carvedilol 25 mg 06/17/18 22:00 06/19/18 23:09 Coreg - PO 25 mg BID MICK Administration Clonidine 0.3 mg 06/17/18 22:00 06/20/18 12:14 Catapres - PO 0.3 mg BID MICK Administration Heparin Sodium (Porcine) 5,000 unit 06/18/18 14:00 06/20/18 05:59 Heparin - SQ 5,000 unit TID [facility] Administration ASSESSMENT AND PLAN: This is a 57 year old man with a history of HTN, hyperlipidemia, CAD, [place], stents , CKD who presented to the ED with lightheadedness and weakness. 1. Lightheadedness - Resolved - Likely vasovagal - Carotid dopplers show 60-79% stenosis of right ICA - Outpatient vascular follow up for carotid stenosis - Echo shows moderate concentric LVH, LVEF 50-55%, grade II diastolic dysfunction, mild-moderate MR, mild , trace PI 2. CAD, history of MN and stents - Stress shows no ST changes from baseline; no arrhythmias; large, moderate to severe inferior and inferolateral fixed defects - Continue aspirin, Coreg, Lipitor 3. CKD, probable stage 4 - Renal US shows medical renal disease - Creatinine stable - Lasix discontinued - Outpatient nephrology follow up 4. HTN - Continue Norvasc, Coreg, Clonidine 5. HLD - Continue Lipitor 6. Skin rash - Thought to be scabies or bed bugs - Treated with Permethrin 06/18
[2018-06-20 14:27] VITALS: BP 113/59; PULSE 56; TEMP 97.1
--- NOTE | 2018-06-20 15:09 | PN ---
Progress Note, Physician Chief Complaint: Pt A&Ox3; ambulating in room. History of Present Illness: Mr. Flaherty is a 57 yo male w/ pmh of HTN and HLD who presents for evaluation of sudden onset weakness earlier today. Patient reports he has been feeling his normal self until shortly before presentation when he became generally weak throughout his body and slumped down. Denies hitting his head or any LOC however. Of note, Mr. Flaherty reports he checked his BP this morning and found it to be 230 systolic. Reports a minor generalized headache at this time. He denies any other complaints. 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 - Current Medication List Current Medications: Active Medications Amlodipine Besylate (Norvasc -) 10 mg PO DAILY [facility] Last Admin: 06/20/18 12:15 Dose: 10 mg Aspirin (Asa -) 81 mg PO DAILY [facility] Last Admin: 06/20/18 12:15 Dose: 81 mg Atorvastatin Calcium (Lipitor -) 80 mg PO HS [facility] Last Admin: 06/19/18 23:09 Dose: 80 mg Clonidine (Catapres -) 0.3 mg PO BID [facility] Last Admin: 06/20/18 12:14 Dose: 0.3 mg Heparin Sodium (Porcine) (Heparin -) 5,000 unit SQ TID [facility] Last Admin: 06/20/18 14:46 Dose: 5,000 unit - Objective Vital Signs: Vital Signs Temperature 97.1 F L 06/20/18 14:00 Pulse Rate 56 L 06/20/18 14:00 Respiratory Rate 18 06/20/18 08:19 Blood Pressure 113/59 L 06/20/18 14:00 O2 Sat by Pulse Oximetry (%) 100 06/19/18 08:47 Constitutional: Yes: Anxious Labs: CBC, BMP 06/20/18 12:20 06/20/18 05:30 INR, PTT INR 1.13 (0.83-1.09) H 06/18/18 05:25 Problem List - Problems (1) HTN (hypertension) Code(s): I10 - ESSENTIAL (PRIMARY) HYPERTENSION (2) Near syncope Code(s): R55 - SYNCOPE AND COLLAPSE (3) Hyperlipidemia Code(s): E78.5 - HYPERLIPIDEMIA, UNSPECIFIED (4) CAD (coronary artery disease) Assessment/Plan: Pt with hx 2 coronary stents placed ?2011 in [place]. Denies hx [place]. Reports haveing stress MIBI at [facility] ?2017. Start statin (elevated LDL and triglycerides). BP control. Now with mild TNI elevation. [facility] record division was contacted: Pt had stress MIBI there in 2014, not 2017; the study was "incomplete". Await results of stres MIBI done today. Code(s): I25.10 - ATHSCL HEART DISEASE OF [place] CORONARY ARTERY W/O ANG PCTRS (5) Renal dysfunction Code(s): N28.9 - DISORDER OF KIDNEY AND URETER, UNSPECIFIED (6) Carotid artery stenosis Code(s): I65.29 - OCCLUSION AND STENOSIS OF UNSPECIFIED CAROTID ARTERY (7) NSVT (nonsustained ventricular tachycardia) Code(s): I47.2 - VENTRICULAR TACHYCARDIA (8) LVH (left ventricular hypertrophy) Code(s): I51.7 - CARDIOMEGALY (9) Troponin level elevated Code(s): R74.8 - ABNORMAL LEVELS OF OTHER SERUM ENZYMES
--- NOTE | 2018-06-20 17:31 | DS ---
Physical Exam: SUBJECTIVE: Patient seen and examined at bedside. Patient denies chest pain, or palpitations. He expresses concern regarding his blood pressure, and the medication regimen was discussed with patient. Discussed importance of medication and outpatient follow up compliance. OBJECTIVE: Vital Signs Period Temp Pulse Resp BP Sys/Lomas Pulse Ox Last 24 Hr 97.1 F-98.0 F 56-71 18-20 113-153/59-83 PHYSICAL EXAM GENERAL: The patient is awake, alert, and fully oriented, in no acute distress. HEAD: Normocephalic, atraumatic EYES: PERRL, extraocular movements intact, sclera anicteric. ENT: Oropharynx clear without exudates, moist mucous membranes. NECK: Trachea midline, full range of motion, supple. LUNGS: Breath sounds equal, clear to auscultation bilaterally, no wheezes, no crackles. HEART: Regular rate and rhythm, S1, S2 without murmur, rub or gallop. ABDOMEN: Soft, nontender, nondistended. Normoactive bowel sounds, no guarding, no rebound tenderness. EXTREMITIES: 2+ radial and dorsalis pedis pulses b/l. No edema bilateral lower extremities NEUROLOGICAL: Cranial nerves II through XII grossly intact. Normal speech. PSYCH: Normal mood, normal affect upon my encounter today. SKIN: Warm, dry. Excoriations with tracking noted on bilateral upper extremities. LABS Laboratory Results - last 24 hr 06/20/18 06/20/18 06/20/18 05:30 05:30 12:20 WBC 5.8 7.8 RBC 4.26 4.70 Hgb 11.0 L 12.1 Hct 33.1 L 36.6 MCV 77.7 L 78.0 L MCH 25.7 25.8 MCHC 33.1 33.1 RDW 18.0 H 18.3 H Plt Count 227 254 MPV 9.1 9.0 Sodium 144 Potassium 3.6 Chloride 107 Carbon Dioxide 26 Anion Gap 11 BUN 47 H Creatinine 2.4 H Creat Clearance w eGFR 28.04 Random Glucose 77 Calcium 7.5 L Total Bilirubin 0.5 AST 31 ALT 43 Alkaline Phosphatase 118 H Creatine Kinase 126 Troponin I 0.03 Total Protein 6.2 L Albumin 3.1 L HOSPITAL COURSE: Date of Admission:06/17/18 Date of Discharge: 06/20/18 Patient is a 57 year old male with history of hypertension, hyperlipidema, prior MT, chronic kidney disease, presents with sudden onset of dizziness and weakness. CT head showed no acute intracranial pathology. Chest xray showed no acute chest pathology. Troponin peaked at 0.06 upon admission. He was placed in telemetry floor and evaluated by cardiology. Cardiac ECHO showed LV normal in size, mild concentric LVH, and LV systolic function low normal with EF 50-55%. Grade II diastolic dysfunction noted. Patient had stress test showing no significant ST changes from baseline ECG, without arrhythmias. large moderate to severe inferior- inerolateral fixed wall defect noted. LVEF 36%. Discussed results with cardiology- likely chronic infract. Patient was also evaluated by Nephrology for his history of CKD. Renal US showed exhogenic kidneys consistent with medical disease. Creatinine from prior hospitalization records from [facility] was noted to be 3.02. Carotid duplex noted 60- 79% stenosis of right internal carotid artery. Patient was evaluated by vascular surgery who discussed no surgical intervention during hospitalization, and outpatient follow up with repeat carotid duplex study within 6 months. He was noted to have linear excoriations on his arms with linear tracking and was treated with Permethrin topical cream. Patient was started on Aspirin. Home Lasix held due acute on chronic kidney disease. Patient discharged to follow up with cardiology, nephrology, and primary care physician. Minutes to complete discharge: 40 Discharge Summary Reason For Visit: CHRONIC KIDNEY DISEASE, PRE SYNCOPE Current Active Problems CAD (coronary artery disease) (Acute) CKD (chronic kidney disease) (Acute) Carotid artery stenosis (Acute) HTN (hypertension) (Acute) Hyperlipidemia (Acute) LVH (left ventricular hypertrophy) (Acute) NSVT (nonsustained ventricular tachycardia) (Acute) Near syncope (Acute) Renal dysfunction (Acute) Troponin level elevated (Acute) Condition: Stable - Instructions Diet, Activity, Other Instructions: You were admitted to hospital for dizziness and weakness. You were evaluated by the armature rewinder and had a stress test of your heart. You were found to have partial narrowing of your blood vessel within the neck, and were evaluated by the vascular surgeon. You will need to follow up with your primary care physician. You are being discharged home. Continue taking your home medications as directed. You will begin taking Aspirin 81mg daily We are holding your Lasix home medication. Discuss reinstating this medication with your primary care physician and truss driver helper at your appointment. Follow up with your primary care physician within two- three days of discharge. You will need repeat carotid doppler study within 6 months. Discuss this further , with your primary care physician. Follow up with armature rewinder (Dr. Joseph) within one week of discharge Follow up with the truss driver helper (Dr. Colin) within one week of discharge. You will require urine studies (urine protein) to be collected at your appointment. You will discuss this with your truss driver helper at your appointment. Follow up with vascular surgeon (Dr. Keita) within one- two weeks after discharge. Return to the nearest emergency department if you experience worsening symptoms , fevers, chills, shortness of breath, chest pain, palpitations, abdominal pain , nausea, vomiting. Referrals: Dallas Joseph MD [Staff Physician] - 1 Week Pankaj Keita MD [Non Staff, Medical] - 1 Week Liana Colin MD [Staff Physician] - Disposition: HOME - Home Medications Comprehensive Discharge Medication List: Ambulatory Orders Amlodipine Besylate [Norvasc -] 10 mg PO DAILY 06/17/18 Atorvastatin Ca [Lipitor] 80 mg PO HS 06/17/18 Carvedilol [Coreg -] 25 mg PO BID 06/17/18 Clonidine HCl 0.3 mg PO BID 06/17/18 Aspirin 81 mg PO DAILY #28 tab.chew 06/20/18 Ranitidine [Zantac -] 150 mg PO BID 06/20/18 This patient is new to me today: Yes Date on this admission: 06/21/18 Emergency Visit: No Critical Care patient: No - Discharge Referral Referred to [facility] Med [facility].C[facility] No
== END 2018-06-20 17:57 | disposition home or self-care (01) ==
LOC: JER 16:35 → JERBED 18:04 → J4S 23:54 → J4W 06-18 21:13
PROVIDERS: ADMIT Internal Medicine; ATTEND Internal Medicine
PROC: 3E033NZ Introduction of Analgesics, Hypnotics, Sedatives into Peripheral Vein, Percutaneous Approach (ICD-10-PCS; principal; 2018-06-17)
PROC: 3E033GC Introduction of Other Therapeutic Substance into Peripheral Vein, Percutaneous Approach (ICD-10-PCS; 2018-06-17)
PROC: 3E0337Z Introduction of Electrolytic and Water Balance Substance into Peripheral Vein, Percutaneous Approach (ICD-10-PCS; 2018-06-17)
PROC: 3E013GC Introduction of Other Therapeutic Substance into Subcutaneous Tissue, Percutaneous Approach (ICD-10-PCS; 2018-06-17)
DX: R55 Syncope and collapse (principal); R77.8 Other specified abnormalities of plasma proteins; I12.9 Hypertensive chronic kidney disease with stage 1 through stage 4 chronic kidney disease, or unspecified chronic kidney disease; I25.10 Atherosclerotic heart disease of native coronary artery without angina pectoris; I65.29 Occlusion and stenosis of unspecified carotid artery; I25.2 Old myocardial infarction; I47.2 Ventricular tachycardia; I51.7 Cardiomegaly; N18.9 Chronic kidney disease, unspecified; E78.5 Hyperlipidemia, unspecified; R21 Rash and other nonspecific skin eruption
CPT/HCPCS: 36415; 70450-TC; 71045-TC-FY; 76775-TC; 78452-TC; 80048; 80053; 80307; 81003; 81015; 82436; 82465; 82550; 82570; 82962; 83036; 83718; 83721; 84133; 84300; 84478; 84484; 85025; 85027; 85610; 86850; 86900; 86901; 93005; 93010; 93017; 93306-TC; 93880-TC; 99284-25; A9502; G0378; J0131; J0735; J1644; J2785; J7030